=== PATIENT | female | born 1965 | race Caucasian/White ===

== ENCOUNTER 2021-03-01 00:42 | Observation (INO) ==
[2021-03-01 02:31] LABS: Basophils # 0.1 K/mcL (0.0-0.2); Basophils % 0.8 %; Eosinophils # 0.2 K/mcL (0.0-0.6); Eosinophils % 3.2 %; Hematocrit 37.7 % (35.3-44.9); Hemoglobin 12.3 g/dL (11.5-15.4); Immature Granulocytes % 0.3 % (0-4); Lymphocytes # 2.2 K/mcL (0.6-4.6); Lymphocytes % 37.1 %; Mean Corpuscular HGB Conc 32.6 g/dL (31.6-35.5); Mean Corpuscular Hemoglobin 31.1 pg (28.0-33.3); Mean Corpuscular Volume 95.4 fL (83.0-100.0); Mean Platelet Volume 10.1 fL (9.4-12.4); Monocytes # 0.5 K/mcL (0.0-1.3); Monocytes % 8.4 %; Platelet Count 213 K/mcL (140-400); Red Blood Count 3.95 M/mcL (3.82-4.97); Red Cell Distribution Width 12.9 % (11.5-14.5); Segmented Neutrophils % 50.2 %
[2021-03-01 02:50] LABS: BUN/Creatinine Ratio 13 (6-26); Blood Urea Nitrogen 13 mg/dL (6-20); Carbon Dioxide 25 mEq/L (23-29); Chloride 108 mEq/L (98-107); Glucose 100 mg/dL (70-105); Osmolality,Calculated 290 (280-300); Potassium 3.7 mEq/L (3.5-5.1); Sodium 140 mEq/L (136-145); Troponin I < 0.03 ng/mL (< 0.04); eGFR For African Americans > 60 (> 60); eGFR For Non-African Americans 56 (> 60)
[2021-03-01] MEDS ORDERED: Isovue-370 500 ML BOTTLE IVP ONE (02:59)
[2021-03-01] MEDS ORDERED: Naloxone 0.4 MG/ML INJ IVP PRN (06:31)
[2021-03-01] MEDS ORDERED: Ondansetron 4 MG/2 ML VIAL IVP PRN (06:31)
[2021-03-01 06:50] LABS: Influenza A PCR Negative (Negative); Influenza B PCR Negative (Negative); Resp. Syncytial Virus PCR Negative (Negative); SARS-CoV-2 by PCR (In House) Negative (Negative)
[2021-03-01] MEDS ORDERED: Albuterol 2.5 MG/3 ML NEBULIZER IH PRN (15:15)
[2021-03-01] MEDS: Aspirin Enteric Coated 81 MG Tablet PO SCH (15:41)
[2021-03-01] MEDS: Isosorbide MONOnitrate (24 HR) 30 MG TAB.ER.24H PO SCH (16:16)
[2021-03-01] MEDS: (Cyclosporine [Restasis] 1 EACH Droperette) OP SCH (20:51)
[2021-03-01] MEDS: Acetaminophen 325 MG TABLET PO PRN (20:51)
[2021-03-01] MEDS: OXcarbazepine 150 MG TABLET PO SCH (20:52)
[2021-03-01] MEDS: calcium polycarbophiL 625 MG TABLET PO SCH (20:52)
[2021-03-01] MEDS ORDERED: Mirtazapine 15 MG TABLET PO SCH (21:00)
[2021-03-02 05:32] LABS: Basophils # 0.1 K/mcL (0.0-0.2); Basophils % 1.4 %; Eosinophils # 0.2 K/mcL (0.0-0.6); Eosinophils % 3.9 %; Hematocrit 39.2 % (35.3-44.9); Hemoglobin 12.5 g/dL (11.5-15.4); Immature Granulocytes % 0.3 % (0-4); Lymphocytes # 1.9 K/mcL (0.6-4.6); Lymphocytes % 33.1 %; Mean Corpuscular HGB Conc 31.9 g/dL (31.6-35.5); Mean Corpuscular Hemoglobin 30.9 pg (28.0-33.3); Mean Platelet Volume 10.3 fL (9.4-12.4); Monocytes # 0.5 K/mcL (0.0-1.3); Monocytes % 8.6 %; Neutrophils # 3.1 K/mcL (1.6-8.9); Platelet Count 211 K/mcL (140-400); Red Blood Count 4.04 M/mcL (3.82-4.97); Red Cell Distribution Width 12.9 % (11.5-14.5); Segmented Neutrophils % 52.7 %; White Blood Count 5.8 K/mcL (4.3-11.1)
[2021-03-02 05:40] LABS: BUN/Creatinine Ratio 15 (6-26); Blood Urea Nitrogen 14 mg/dL (6-20); Calcium 9.3 mg/dL (8.6-10.3); Carbon Dioxide 28 mEq/L (23-29); Chloride 107 mEq/L (98-107); Glucose 107 mg/dL (70-105); Osmolality,Calculated 289 (280-300); Potassium 4.3 mEq/L (3.5-5.1); Sodium 139 mEq/L (136-145); eGFR For African Americans > 60 (> 60); eGFR For Non-African Americans > 60 (> 60)
[2021-03-02] MEDS ORDERED: Levothyroxine 25 MCG TABLET PO SCH (06:30)
[2021-03-02] MEDS: Acetaminophen 325 MG TABLET PO PRN (06:38)
[2021-03-02] MEDS: (Cyclosporine [Restasis] 1 EACH Droperette) OP SCH (08:02)
[2021-03-02] MEDS: Aspirin Enteric Coated 81 MG Tablet PO SCH (08:18)
[2021-03-02] MEDS: Isosorbide MONOnitrate (24 HR) 30 MG TAB.ER.24H PO SCH (08:26)
[2021-03-02] MEDS: calcium polycarbophiL 625 MG TABLET PO SCH (08:26)
[2021-03-02] MEDS: OXcarbazepine 150 MG TABLET PO SCH (08:27)
[2021-03-02] MEDS ORDERED: Venlafaxine XR (24 HR) 37.5 MG CAP.ER.24H PO SCH (09:00)
[2021-03-02] MEDS ORDERED: Tiotropium 10 INH DOSE IH SCH (09:00)
[2021-03-02 10:53] VITALS: BP 162/79
[2021-03-02] MEDS ORDERED: Budesonide/Formoterol 160/4.5 1 PUFF INH IH SCH (12:00)
== END 2021-03-02 12:58 | disposition home or self-care (01) ==
LOC: EMEROOARM 00:42 → 3ANU 00:42 → SUATTDRO 05:21 → 3ANU 06:30
PROVIDERS: ADMIT Family Medicine; ATTEND General Practice